=== PATIENT | male | born 1995 | race Caucasian/White ===

== ENCOUNTER 2016-08-09 21:25 | Emergency (ER) | payer BC ==
[~2016-08-09] VITALS: Ht 172.7 cm; Wt 84.5 kg
[~2016-08-09 21:25] MED LIST: ACET325T45 PO; ACET500C5 PO; ALBU8.5H5 IH; AMO500 PO; AZIT250T94 PO; CETI10CA PO; CODE118S PO; ERYTOPOI LEFT EYE; HYDR-3498 PO; IBUP-1542 PO; IBUP200C PO; NAPH15DR22 BOTH EYES; NAPR-260 PO; PRED20TA PO; UDROBDM PO; ZOF8 PO
[2016-08-09 21:27] VITALS: Ht 172.7 cm; Wt 84.5 kg
[2016-08-09] MEDS ORDERED: ONDANSETRON 4 MG INJ IV STA (22:09)
[2016-08-09] MEDS ORDERED: morphine 4 MG/ML VIAL IV STA (22:09)
[2016-08-09] MEDS ORDERED: SOD CHLORIDE 0.9% 1,000 ML IV STA (22:09)
--- NOTE | 2016-08-09 22:20 | ERD ---
ER Documentation Chief Complaint Date/Time DATE: 08/09/16 TIME: 22:15 Chief Complaint left sided abd pain x 2 weeks HPI 21-year-old presents to emergency department for complaint of left low quadrant abdominal pain nausea vomiting diarrhea for 2 weeks. Patient does not have any blood in the stool or black stool. Patient does not have any blood in the vomit. Patient denies hematuria or dysuria. Patient denies any flank pain. Patient did not take medications to help with symptoms. Patient denies any recent travel. ROS All systems reviewed and are negative except as per history of present illness. Medications Home Meds Active Scripts Cetirizine Hcl* (Zyrtec*) 10 Mg Capsule, 10 MG PO DAILY, #30 TAB.CHEW Prov:KAMALJIT BURNETT NP 03/06/16 Ibuprofen* (Motrin*) 600 Mg Tab, 600 MG PO Q6H Y for PAIN AND OR ELEVATED TEMP, #30 TAB Prov:KAMALJIT BURNETT NP 03/06/16 Erythromycin* (Erythromycin* Ophthalmic) 1 Applic Oint, 1 APPLIC LEFT EYE QID for 7 Days, EA Prov:KAMALJIT BURNETT NP 03/06/16 Naphazoline-Pheniramine* (Visine-A*) 15 Ml Drops, 2 DROP BOTH EYES Q4H, #1 BOT Prov:KAMALJIT BURNETT NP 03/06/16 Amoxicillin* (Amoxicillin*) 500 Mg Cap, 500 MG PO TID for 7 Days, CAP Prov:BEE SILVA 02/16/16 Acetaminophen* (Acetaminophen*) 325 Mg Tablet, 650 MG PO Q4H Y for PAIN AND OR ELEVATED TEMP, #20 TAB Prov:MADHU CASTILLO DO 07/24/15 Prednisone* (Prednisone*) 20 Mg Tab, 40 MG PO DAILY, #3 TAB Prov:MADHU CASTILLO 07/24/15 Promethazine w/Codeine (Phenergan w/Codeine Syrup) 5 Ml Syrup, 5 ML PO Q6 Y for COUGH, #120 ML Prov:MADHU CASTILLO 07/24/15 Azithromycin* (Zithromax*) 250 Mg Tablet, 250 MG PO .VIRIDIANA DIRECTED, #6 TAB TAKE 500 MG (2 TABS) THE FIRST DAY THEN 250 MG (1 TAB) DAYS 2-5 Prov:JONATHANMADHU 07/24/15 Guaifenesin-Dextromethorphan* (Robitussin* DM) 100MG/10MG/5ML Syrup, 10 ML PO Q6H Y for COUGH, #240 ML 0 Refills Prov:HAKAN MCMILLAN PA-C 04/18/15 Ibuprofen* (Ibuprofen*) 200 Mg Capsule, 200 MG PO Q6, #30 CAP 0 Refills Prov:HAKAN MCMILLAN PA-C 04/18/15 Acetaminophen* (Tylophen*) 500 Mg Capsule, 500 MG PO Q6H Y for FEVER, #30 TAB 0 Refills Prov:HAKAN MCMILLAN PA-C 04/18/15 Ondansetron Hcl* (Zofran* ODT) 8 mg -ODT Tab.disper, 8 MG PO DAILY for NAUSEA AND/OR VOMITING, #10 TAB 0 Refills Prov:HAKAN MCMILLAN PA-C 04/18/15 Albuterol Sulfate* (Albuterol Sulfate* HFA) 8.5 Gm Hfa.aer.ad, 2 PUFF IH Q6, #1 EA Prov:HAILE ROTH PA-C 03/09/15 Hydrocodone Bit-Acetaminophen* ([place]*) 5-325 Mg Tab, 1 TAB PO Q6 Y for PAIN, # 13 TAB Prov:MADHU CASTILLO 10/19/14 Naproxen* (Naprosyn*) 500 Mg Tablet, 500 MG PO BID Y for PAIN AND/OR INFLAMMATION, #20 TAB Prov:JONATHAN,MADHU 10/19/14 Allergies Allergies: Coded Allergies: No Known Allergy (Unverified , 07/24/15) PMhx/Soc Medical and Surgical Hx: pt denies Medical Hx, pt denies Surgical Hx History of Surgery: No Anesthesia Reaction: No Hx Neurological Disorder: No Hx Respiratory Disorders: No Hx Cardiac Disorders: No Hx Psychiatric Problems: No Hx Miscellaneous Medical Probl: No Hx Alcohol Use: Yes Hx Substance Use: No Hx Tobacco Use: No FmHx Family History: No coronary disease, No diabetes, No other Physical Exam Vitals Vital Signs Date Time Temp Pulse Resp B/P Pulse Ox O2 Delivery O2 Flow Rate FiO2 08/09/16 21:27 97.5 87 20 139/78 100 Physical Exam GENERAL: The patient is well developed and appropriate for usual state of health, in no apparent distress. CHEST: Clear to auscultation bilaterally. There are no rales, wheezes or rhonchi. HEART: Regular rate and rhythm. No murmurs, clicks, rubs or gallops. No S3 or S4. ABDOMEN: Soft, nontender and nondistended. Good bowel sounds. No rebound or guarding. No gross peritonitis. No gross organomegaly or masses. No Freitas sign or McBurney point tenderness. BACK: No midline or flank tenderness. EXTREMITIES: Equal pulses bilaterally. There is no peripheral clubbing, cyanosis or edema. No focal swelling or erythema. Full range of motion. Grossly neurovascularly intact. NEURO: Alert and oriented. Cranial nerves 2-12 intact. Motor strength in all 4 extremities with 5/5 strength. Sensation grossly intact. Normal speech and gait. SKIN: There is no apparent rash or petechia. The skin is warm and dry. HEMATOLOGIC AND LYMPHATIC: There is no evidence of excessive bruising or lymphedema. No gross cervical, axillary, or inguinal lymphadenopathy. Result Diagram: 08/09/16223208/[id number]/162232 Results 24 hrs Laboratory Tests Test 08/09/16 22:33 White Blood Count 6.810^3/ul Red Blood Count 5.2610^6/ul Hemoglobin 15.2g/dl Hematocrit 46.8% Mean Corpuscular Volume 89.0fl Mean Corpuscular Hemoglobin 28.9pg Mean Corpuscular Hemoglobin Concent 32.5g/dl Red Cell Distribution Width 12.3% Platelet Count 69973^3/UL Mean Platelet Volume 9.4fl Neutrophils % 59.3% Lymphocytes % 31.5% Monocytes % 6.1% Eosinophils % 2.1% Basophils % 0.6% Nucleated Red Blood Cells % 0.0/100WBC Neutrophils # 4.010^3/ul Lymphocytes # 2.110^3/ul Monocytes # 0.410^3/ul Eosinophils # 0.110^3/ul Basophils # 0.010^3/ul Nucleated Red Blood Cells # 0.010^3/ul Urine Color LT. YELLOW Urine Clarity CLEAR Urine pH 6.0 Urine Specific [place] >=1.030 Urine Ketones NEGATIVE Urine Nitrite NEGATIVE Urine Bilirubin NEGATIVE Urine Urobilinogen 0.2 E.U./dL Urine Leukocyte Esterase NEGATIVE Urine Hemoglobin NEGATIVE Urine Glucose NEGATIVE% Urine Total Protein NEGATIVE Sodium Level 139mmol/L Potassium Level 3.7mmol/L Chloride Level 103mmol/L Carbon Dioxide Level 27mmol/L Anion Gap 13 Blood Urea Nitrogen 11mg/dl Creatinine 0.91mg/dl Glucose Level 96mg/dl Calcium Level 9.7mg/dl Total Bilirubin 0.1mg/dl Direct Bilirubin 0.00mg/dl Indirect Bilirubin 0.1mg/dl Aspartate Amino Transf (AST/SGOT) 28IU/L Alanine Aminotransferase (ALT/SGPT) 33IU/L Alkaline Phosphatase 97IU/L Total Protein 8.4g/dl Albumin 4.9g/dl Globulin 3.50g/dl Albumin/Globulin Ratio 1.40 Lipase 134U/L Current Medications Medications (Trade) Dose Ordered Sig/Maxine Route PRN Reason Start Time Stop Time Status Last Admin Dose Admin Sodium Chloride (NS) 1,000 ml @ 1,000 mls/hr Q1H STAT IV 08/09/16 22:09 08/09/16 23:08 DC 08/09/16 22:44 Morphine Sulfate (morphine) 4 mg ONCE STAT IV 08/09/16 22:09 08/09/16 22:10 DC 08/09/16 22:44 Ondansetron HCl (Zofran Inj) 4 mg ONCE STAT IV 08/09/16 22:09 08/09/16 22:10 DC 08/09/16 22:44 Patient was given medication for pain here in emergency department, after treatment, patient verbalized feeling much better. Patient's pain is improved.Patient was given Zofran here in the emergency department. After treatment, patient was able to tolerate po fluids here in the emergency department without any vomiting. There is no signs and symptoms of dehydration. Normal saline IV bolus was given here in emergency department for rehydration, patient tolerated IV fluids. PROCEDURE: CT abdomen and pelvis without contrast. CLINICAL INDICATION: Left lower quadrant pain TECHNIQUE: CT scan of the abdomen and pelvis without contrast was performed. Sagittal and coronal reformatted images were obtained from the axial source images. CTDI = 15.57 mGy; DLP = 856.36 mGy-cm COMPARISON: CT abdomen and pelvis 11/29/2012 FINDINGS: Visualized lower thorax: Subtle micro nodules in the anterior basal segment left lower lobe are new possibly the sequela of infection (series 3 image 3). The right lung base is clear. There is no evidence for pleural effusion. Liver, gallbladder, pancreas and spleen: The liver is normal and size, contour and attenuation. There is no evidence for a liver mass or ductal dilatation. The gallbladder is unremarkable. No common bile duct abnormality is demonstrated. The pancreas is unremarkable. The spleen is normal in size. Adrenal glands and genitourinary system: The adrenal glands are normal bilaterally. The kidneys are normal and size, contour and attenuation with no evidence for masses, calculi or hydronephrosis. The ureters are unremarkable. No urinary bladder abnormality is demonstrated. The prostate gland is normal in size. The visualized scrotum shows no abnormality. Gastrointestinal system: The stomach is normal in caliber with no abnormality of significance. The small bowel is normal in caliber with no ileus, obstruction or wall thickening. The appendix and surrounding fat are within the limits of normal. The colon shows no evidence for wall thickening or acute abnormality. There is no evidence for colitis or diverticulitis. Peritoneum, retroperitoneum, lymph nodes and vessels: The abdominal aorta is normal in caliber. No pneumoperitoneum is evident. The inferior vena cava is unremarkable. There is no evidence for adenopathy or mass. There is no ascites. Osseous structures and musculoskeletal findings: There is no fracture, lytic or blastic lesion. No muscular abnormality or soft tissue pathology is present. RPTAT:HJJR IMPRESSION: 1. No evidence of acute intra-abdominal or intrapelvic pathology, there are no findings to help explain the patient's history. 2. Tiny benign appearing likely post inflammatory micro nodules within the anterior basal segment of the left lower lobe are not evident on the prior CT of 11/29/2012 Physician Jamie Date Time Electronically viewed and signed by Physician Jamie on 08/09/2016 23:57 JR/ CC: KAMALJIT BURNETT SENIOR DATA ARCHITECT Procedures/MDM Medical Decision Making: Patient 's abdominal pain and vomiting and diarrhea most likely consistent with acute gastroenteritis, most likely bacterial, will treat with Flagyl and ciprofloxacin. No diverticulitis noted, no abscesses noted. There is low suspicion for abdominal emergencies at this time. Patients abdominal exam is normal at this time. Patients radiology exam does not show any abdominal emergencies at this time. There is low suspicion for appendicitis , cholecystitis, abdominal aortic aneurysms or peritonitis at this time. There is low suspicion for sepsis. Patient appears well and is hemodynamically stable. Disposition: Home. Condition: Stable Prescription Flagyl, ciprofloxacin, Bentyl, Zofran, [place]. Instructions: Patient is advised to take medications as prescribed. Patient is advised to rest, increase fluid intake and do brat diet for next 1-2 days and progress as tolerated. Patient is advised that if symptoms are worse, severe abdominal pain, uncontrolled vomiting, high fever, severe flank pain, worst signs and symptoms, to return to the emergency department immediately. Otherwise, patient can follow up with primary care doctor in 5-7 days. Departure Diagnosis: Primary Impression: Acute gastroenteritis Condition: Stable Patient Instructions: Bacterial Gastroenteritis Additional Instructions: Patient is advised to take medications as prescribed. Patient is advised to rest , increase fluid intake and do brat diet for next 1-2 days and progress as tolerated. Patient is advised that if symptoms are worse, severe abdominal pain , uncontrolled vomiting, high fever, severe flank pain, worst signs and symptoms , to return to the emergency department immediately. Otherwise, patient can follow up with primary care doctor in 5-7 days. KAMALJIT BURNETT NP Aug 09, 2016 22:20
[2016-08-09 23:30] LABS: ADD SCAN DIFF NO
[2016-08-09 23:37] LABS: BASOPHILS % 0.6 % (0.0-2.0); EOSINOPHILS # 0.1 10^3/ul (0.0-0.5); EOSINOPHILS % 2.1 % (0.0-7.0); HEMATOCRIT 46.8 % (42.0-52.0); HEMOGLOBIN 15.2 g/dl (14.0-18.0); LYMPHOCYTES # 2.1 10^3/ul (0.8-2.9); LYMPHOCYTES % 31.5 % (18.0-55.0); MEAN CORPUSCULAR HEMOGLOBIN 28.9 pg (29.0-33.0); MEAN CORPUSCULAR HGB CONC 32.5 g/dl (32.0-37.0); MEAN PLATELET VOLUME 9.4 fl (7.4-10.4); MONOCYTE # 0.4 10^3/ul (0.3-0.9); MONOCYTES % 6.1 % (0.0-13.0); NEUTROPHILS % 59.3 % (30.0-74.0); PLATELET COUNT 371 10^3/UL (140-415); RED BLOOD COUNT 5.26 10^6/ul (4.70-6.10); RED CELL DISTRIBUTION WIDTH 12.3 % (11.5-14.5); WHITE BLOOD COUNT 6.8 10^3/ul (4.8-10.8)
[2016-08-09 23:38] LABS: ADD UMIC NO; URINE BILIRUBIN (Dip) NEGATIVE (NEGATIVE); URINE BLOOD (Dip) NEGATIVE (NEGATIVE); URINE COLOR LT. YELLOW (YELLOW); URINE GLUCOSE (Dip) NEGATIVE (NEGATIVE); URINE KETONES (Dip) NEGATIVE (NEGATIVE); URINE LEUKOCYTE ESTERASE (Dip) NEGATIVE (NEGATIVE); URINE NITRITE (Dip) NEGATIVE (NEGATIVE); URINE TOTAL PROTEIN (Dip) NEGATIVE (NEGATIVE); URINE UROBILINOGEN (Dip) 0.2 E.U./dL (0.1-1.0)
[2016-08-09 23:54] LABS: ALBUMIN 4.9 g/dl (3.3-4.9); ALBUMIN/GLOBULIN RATIO 1.4; BILIRUBIN,INDIRECT 0.1 mg/dl (0-1.1); BILIRUBIN,TOTAL 0.1 mg/dl (0.2-1.3); CALCIUM 9.7 mg/dl (8.4-10.2); CREATININE 0.91 mg/dl (0.61-1.24); POTASSIUM 3.7 mmol/L (3.5-5.1); TOTAL PROTEIN 8.4 g/dl (6.1-8.1)
--- NOTE | 2016-08-09 23:58 | RADRPT ---
PROCEDURE: CT abdomen and pelvis without contrast. CLINICAL INDICATION: Left lower quadrant pain TECHNIQUE: CT scan of the abdomen and pelvis without contrast was performed. Sagittal and coronal reformatted images were obtained from the axial source images. CTDI = 15.57 mGy; DLP = 856.36 mGy-c m COMPARISON: CT abdomen and pelvis 11/29/2012 FINDINGS: Visualized lower thorax: Subtle micro nodules in the anterior basal segment left lower lobe are new possibly the sequela of infection (series 3 image 3). The right lung base is clear. There is no e vidence for pleural effusion. Liver, gallbladder, pancreas and spleen: The liver is normal and size, contour and attenuation. Th ere is no evidence for a liver mass or ductal dilatation. The gallbladder is unremarkable. No comm on bile duct abnormality is demonstrated. The pancreas is unremarkable. The spleen is normal in si ze. Adrenal glands and genitourinary system: The adrenal glands are normal bilaterally. The kidneys are normal and size, contour and attenuation with no evidence for masses, calculi or hydronephrosis. T he ureters are unremarkable. No urinary bladder abnormality is demonstrated. The prostate gland is normal in size. The visualized scrotum shows no abnormality. Gastrointestinal system: The stomach is normal in caliber with no abnormality of significance. The small bowel is normal in caliber with no ileus, obstruction or wall thickening. The appendix and s urrounding fat are within the limits of normal. The colon shows no evidence for wall thickening or acute abnormality. There is no evidence for colitis or diverticulitis. Peritoneum, retroperitoneum, lymph nodes and vessels: The abdominal aorta is normal in caliber. No pneumoperitoneum is evident. The inferior vena cava is unremarkable. There is no evidence for javi opathy or mass. There is no ascites. Osseous structures and musculoskeletal findings: There is no fracture, lytic or blastic lesion. No muscular abnormality or soft tissue pathology is present. RPTAT:HJJR IMPRESSION: 1. No evidence of acute intra-abdominal or intrapelvic pathology, there are no findings to help exp cornelia the patient's history. 2. Tiny benign appearing likely post inflammatory micro nodules within the anterior basal segment o f the left lower lobe are not evident on the prior CT of 11/29/2012 Joselito Graham, Physician Date Time Electronically viewed and signed by Joselito Graham Physician on 08/09/2016 23:57 JR/
[2016-08-10] MEDS ORDERED: CIPR500T4 PO (00:06)
[2016-08-10] MEDS ORDERED: ONDA4TAB14 PO (00:06)
[2016-08-10] MEDS ORDERED: HYDR-906 PO (00:06)
[2016-08-10] MEDS ORDERED: DICY10CA60 PO (00:06)
[2016-08-10] MEDS ORDERED: METR500T PO (00:06)
[2016-08-10 00:31] VITALS: BP 128/80; PULSE 86; RESP 20; TEMP 98
== END 2016-08-10 00:31 | disposition home or self-care (01) ==
LOC: FTE 21:25
DX: K52.9 Noninfective gastroenteritis and colitis, unspecified (principal); R11.2 Nausea with vomiting, unspecified
CPT/HCPCS: 36415; 74176; 80053; 81003; 83690; 85025; 96374; 96375; J2270; J2405; J7030; Z7502

== ENCOUNTER 2016-10-10 10:10 | Emergency (ER) | payer BC ==
[~2016-10-10] VITALS: Wt 87.0 kg
[~2016-10-10 10:10] MED LIST changes: +CIPR500T4 PO; +DICY10CA60 PO; +HYDR-906 PO; +METR500T PO; +ONDA4TAB14 PO
[2016-10-10] MEDS ORDERED: FAMOTIDINE 20 MG TAB PO ONE (10:30)
[2016-10-10] MEDS ORDERED: LIDOCAINE/MYLANTA 40 ML BTL PO ONE (10:30)
[2016-10-10] MEDS ORDERED: ONDANSETRON (ODT) 4 MG TAB ODT STA (10:30)
--- NOTE | 2016-10-10 11:08 | ERD ---
ER Documentation Chief Complaint Date/Time DATE: 10/10/16 TIME: 11:05 Chief Complaint SOB, BACK PAIN, FLANK PAIN, CHEST WALL PAIN, ON AND OFF X2 WEEKS HPI Is a 21-year-old male with no past medical history who presents to the ED with shortness of breath, chest wall pain and epigastric pain on and off 2 weeks. The epigastric pain he has experienced in the past and states that it is similar to what he has experienced in the past. However he states that the shortness of breath and chest wall pain have been going on on and off for the last 2 weeks. He denies syncopal episodes. He denies headache or dizziness or blurry vision. He states that when he palpates on his chest he feels the pain in his chest wall. He denies difficulty breathing. He denies leg pain or leg swelling. He denies recent travel or recent surgeries. Denies history of DVT or PE in the past. ROS All systems reviewed and are negative except as per history of present illness. Medications Home Meds Active Scripts Famotidine* (Pepcid*) 20 Mg Tablet, 20 MG PO BID for 30 Days, TAB Prov:DAMASO SERRANO PA-C 10/10/16 Acetaminophen* (Tylophen*) 500 Mg Capsule, 1 CAP PO Q6H Y for PAIN AND OR ELEVATED TEMP, #20 CAP Prov:DAMASO SERRANO PA-C 10/10/16 Metronidazole* (Flagyl*) 500 Mg Tablet, 500 MG PO TID for 10 Days, TAB Prov:KAMALJIT BURNETT NP 08/10/16 Ciprofloxacin Hcl* (Ciprofloxacin Hcl*) 500 Mg Tablet, 500 MG PO BID for 10 Days , TAB Prov:KAMALJIT BURNETT NP 08/10/16 Dicyclomine Hcl* (Bentyl*) 10 Mg Capsule, 10 MG PO QID, #20 CAP Prov:KAMALJIT BURNETT NP 08/10/16 Ondansetron (Ondansetron Odt) 4 Mg Tab.rapdis, 4 MG PO Q8 Y for NAUSEA AND/OR VOMITING, #30 TAB Prov:KAMALJIT BURNETT NP 08/10/16 Hydrocodone/Acetaminophen ([place] 5-325 Tablet) 1 Each Tablet, 1 TAB PO Q6H Y for SEVERE PAIN LEVEL 7-10, #20 TAB Prov:KAMALJIT BURNETT [employer]IN ROLLING MACHINE OPERATOR 08/10/16 Cetirizine Hcl* (Zyrtec*) 10 Mg Capsule, 10 MG PO DAILY, #30 TAB.CHEW Prov:KAMALJIT BURNETT COIN ROLLING MACHINE OPERATOR 03/06/16 Ibuprofen* (Motrin*) 600 Mg Tab, 600 MG PO Q6H Y for PAIN AND OR ELEVATED TEMP, #30 TAB Prov:KAMALJIT BURNETT COIN ROLLING MACHINE OPERATOR 03/06/16 Erythromycin* (Erythromycin* Ophthalmic) 1 Applic Oint, 1 APPLIC LEFT EYE QID for 7 Days, EA Prov:KAMALJIT BURNETT NP 03/06/16 Naphazoline-Pheniramine* (Visine-A*) 15 Ml Drops, 2 DROP BOTH EYES Q4H, #1 BOT Prov:KAMALJIT BURNETT NP 03/06/16 Amoxicillin* (Amoxicillin*) 500 Mg Cap, 500 MG PO TID for 7 Days, CAP Prov:BEE SILVA DO 02/16/16 Acetaminophen* (Acetaminophen*) 325 Mg Tablet, 650 MG PO Q4H Y for PAIN AND OR ELEVATED TEMP, #20 TAB Prov:MADHU CASTILLO DO 07/24/15 Prednisone* (Prednisone*) 20 Mg Tab, 40 MG PO DAILY, #3 TAB Prov:MADHU CASTILLO DO 07/24/15 Promethazine w/Codeine (Phenergan w/Codeine Syrup) 5 Ml Syrup, 5 ML PO Q6 Y for COUGH, #120 ML Prov:MADHU CASTILLO DO 07/24/15 Azithromycin* (Zithromax*) 250 Mg Tablet, 250 MG PO .ZPACK DIRECTED, #6 TAB TAKE 500 MG (2 TABS) THE FIRST DAY THEN 250 MG (1 TAB) DAYS 2-5 Prov:MADHU CASTILLO DO 07/24/15 Guaifenesin-Dextromethorphan* (Robitussin* DM) 100MG/10MG/5ML Syrup, 10 ML PO Q6H Y for COUGH, #240 ML 0 Refills Prov:HAKAN MCMILLAN PA-C 04/18/15 Ibuprofen* (Ibuprofen*) 200 Mg Capsule, 200 MG PO Q6, #30 CAP 0 Refills Prov:HAKAN MCMILLAN PA-C 04/18/15 Acetaminophen* (Tylophen*) 500 Mg Capsule, 500 MG PO Q6H Y for FEVER, #30 TAB 0 Refills Prov:HAKAN MCMILLAN PA-C 04/18/15 Ondansetron Hcl* (Zofran* ODT) 8 mg -ODT Tab.disper, 8 MG PO DAILY for NAUSEA AND/OR VOMITING, #10 TAB 0 Refills Prov:HAKAN MCMILLAN PA-C 04/18/15 Albuterol Sulfate* (Albuterol Sulfate* HFA) 8.5 Gm Hfa.aer.ad, 2 PUFF IH Q6, #1 EA Prov:HAILE ROTH PA-C 03/09/15 Hydrocodone Bit-Acetaminophen* ([place]*) 5-325 Mg Tab, 1 TAB PO Q6 Y for PAIN, # 13 TAB Prov:JONATHANMADHU AYERS 10/19/14 Naproxen* (Naprosyn*) 500 Mg Tablet, 500 MG PO BID Y for PAIN AND/OR INFLAMMATION, #20 TAB Prov:JONATHANMADHU AYERS 10/19/14 Allergies Allergies: Coded Allergies: No Known Allergy (Unverified , 07/24/15) PMhx/Soc Medical and Surgical Hx: pt denies Medical Hx, pt denies Surgical Hx History of Surgery: No Anesthesia Reaction: No Hx Neurological Disorder: No Hx Respiratory Disorders: No Hx Cardiac Disorders: No Hx Psychiatric Problems: No Hx Miscellaneous Medical Probl: No Hx Alcohol Use: Yes (socially) Hx Substance Use: No Hx Tobacco Use: No Smoking Status: Never smoker FmHx Family History: No coronary disease, No diabetes, No other Physical Exam Vitals Vital Signs Date Time Temp Pulse Resp B/P Pulse Ox O2 Delivery O2 Flow Rate FiO2 10/10/16 10:13 97.2 74 18 129/80 98 Physical Exam GENERAL: Well-developed, well-nourished male. Appears in no acute distress. HEAD: Normocephalic, atraumatic. EYES: Pupils are equally reactive bilaterally. EOMs grossly intact. No conjunctival erythema. ENT: Moist mucous membranes. No uvula deviation. No kissing tonsils. No exudates. NECK: Supple. No lymphadenopathy or thyromegaly. No meningismus. negative kernig. negative brudinski. LUNG: Clear to auscultation bilaterally. No rhonchi, wheezing, rales or coarse breath sounds. Tender to palpation of the sternum HEART: Regular rate and rhythm. No murmurs, rubs or gallops. ABDOMEN: No scars, ecchymosis or rashes noted. Soft, and nondistended. Positive bowel sounds in all four quadrants. No rebound tenderness, no guarding. (-) McBurneys point tenderness. No CVA tenderness. Tenderness in the epigastric region. BACK: No midline tenderness. Extremities: Equal pulses bilaterally. No peripheral clubbing, cyanosis or edema. No unilateral leg swelling. Negative Homans sign. No palpable cord NEUROLOGIC: Alert and oriented. Moving all four extremities. 5/5 strength in all extremities. Normal speech. Steady gait. SKIN: Normal color. Warm and dry. No rashes or lesions. Capillary refill < 2 seconds Results 24 hrs Current Medications Medications (Trade) Dose Ordered Sig/Maxine Route PRN Reason Start Time Stop Time Status Last Admin Dose Admin Miscellaneous Medication (Gi Cocktail (2)) 40 ml ONCE ONCE PO 10/10/16 10:30 10/10/16 10:32 DC 10/10/16 10:40 Famotidine (Pepcid) 20 mg ONCE ONCE PO 10/10/16 10:30 10/10/16 10:32 DC 10/10/16 10:40 Ondansetron HCl (Zofran Odt) 4 mg ONCE STAT ODT 10/10/16 10:30 10/10/16 10:32 DC 10/10/16 10:40 Procedures/MDM ER COURSE: I kept the patient and/or family informed of laboratory and diagnostic imaging results throughout the emergency room course. IMAGING STUDIES [place] [id number] Radiology Main Line: [phone] DIAGNOSTIC IMAGING REPORT Patient: TREVOR LR : 1995 Age: 21 Sex: M MR #: [id number] DOS: 10/10/16 1030 Ordering MD: DAMAOS SERRANO PA-C Location: [facility] Room/Bed: PROCEDURE: Chest Radiograph. CLINICAL INDICATION: Chest pain TECHNIQUE: Single frontal chest radiograph. COMPARISON: None available FINDINGS: The cardiomediastinal silhouette is within normal limits. There is no pneumothorax. No infiltrate or effusion is seen. The bones are intact. IMPRESSION: 1. Unremarkable chest radiograph. RPTAT: KK .Wily Ford MD, MD Date Time Electronically viewed and signed by .Wily Ford MD, MD on 2016 11:15 .B/ CC: DAMASO SERRANO PA-C EKG performed, read by Dr. Sams 64 bpm, normal sinus rhythm, normal axis, no acute ST segment changes, no T wave inversion MEDICAL DECISION MAKING: This is a 21-year-old male who presents with chest wall pain, shortness of breath and epigastric pain 2 weeks. Vital signs were reviewed. Patient is afebrile. Patient is not hypoxic. Patient is not toxic or ill-appearing. Patient's epigastric pain is likely gastritis. Patient has had this pain in the past. Denies fevers or nausea or vomiting I have low suspicion for gallbladder disease. Patient was given a GI cocktail and Pepcid here in the ED tolerated well and seen improvement in symptoms. His EKG was within normal limits and his chest x-ray was within normal limits and did not show signs of fracture or dislocation. Patient likely has chest wall pain. Low suspicion for ACS, AAA, perforated ulcer, bowel obstruction, cholecystitis, choledocholithiasis, cholangitis, pancreatitis, hepatic abscess, appendicitis, diverticulitis, gastroenteritis, hepatitis, peptic ulcer disease, HELLP syndrome. Low suspicion for ACS, PE, AAA, dissection, DVT DISCHARGE: At this time, patient is stable for discharge and outpatient management with no new complaints during the ER course. Patient was sent home with Tylenol and Pepcid and to follow-up with primary care provider a list of clinics was given to patient.. Patient will be discharged home with instructions to recheck for new or worsening symptoms such as fever, nausea, weakness, LOC and to follow up with primary care in the next 1-2 days. Patient was advised to return to the ER for any new or worsening symptoms. Plan was discussed and patient and/or family understands and agrees. Home instructions were given. Departure Diagnosis: Primary Impression: Chest wall pain Additional Impression: Epigastric pain Condition: Stable DAMASO SERRANO PA-C Oct 10, 2016 11:08
--- NOTE | 2016-10-10 11:16 | RADRPT ---
PROCEDURE: Chest Radiograph. CLINICAL INDICATION: Chest pain TECHNIQUE: Single frontal chest radiograph. COMPARISON: None available FINDINGS: The cardiomediastinal silhouette is within normal limits. There is no pneumothorax. No infiltrate o r effusion is seen. The bones are intact. IMPRESSION: 1. Unremarkable chest radiograph. RPTAT: KK .Wily Ford MD, MD Date Time Electronically viewed and signed by .Wily Ford MD, on 10/10/2016 11:15 .B/
[2016-10-10] MEDS ORDERED: ACET500C5 PO (11:34)
[2016-10-10] MEDS ORDERED: FAMO-18 PO (11:35)
== END 2016-10-10 12:46 | disposition home or self-care (01) ==
LOC: FTE 10:10
DX: R07.89 Other chest pain (principal); R10.13 Epigastric pain
CPT/HCPCS: 71010; 93005; Z7610

== ENCOUNTER 2017-09-26 15:27 | Emergency (ER) | END 2017-09-26 19:00 | disposition home or self-care (01) ==

== ENCOUNTER 2017-12-09 05:37 | Emergency (ER) | END 2017-12-09 07:34 | disposition home or self-care (01) ==

== ENCOUNTER 2018-07-12 21:22 | Emergency (ER) | payer BC ==
[~2018-07-12] VITALS: Ht 167.6 cm; Wt 88.6 kg
[~2018-07-12 21:22] MED LIST changes: -AMO500 PO; +AMOX500C2 PO; +AZIT250T PO; -AZIT250T94 PO; +BEN25 PO; +CYCL10TA7 PO; +DICY10CA40 PO; -DICY10CA60 PO; +FAMO-96 PO; +GUAI5SYR2 PO; +HYDR-4011 PO; -HYDR-906 PO; +IBUP-1982 PO; -IBUP200C PO; +IBUP800T48 PO; -NAPH15DR22 BOTH EYES; +NAPH15DR69 BOTH EYES; -NAPR-260 PO; +NAPR-985 PO; +RANI150T35 PO; -UDROBDM PO
[2018-07-12 22:03] VITALS: BP 137/79; PULSE 80; RESP 18; Ht 167.6 cm; Wt 88.6 kg
--- NOTE | 2018-07-13 02:34 | ERD ---
ER Documentation Chief Complaint Chief Complaint L SIDE AP X'S 10 DAYS, VOMITING, DIARRHEA HPI This is a 23-year-old male who presents here in emergency department with complaints of left-sided abdominal pain that is on and off for about 2 weeks and got worse today. Denies headache, head injury, loss of consciousness, dizziness, neck pain, neck stiffness, throat pain, difficulty swallowing, difficulty breathing lying flat, shoulder pain, chest pain, back pain, abdominal pain, nausea, vomiting, constipation, urinary symptoms, loss of bowel and bladder control, trauma, injury, falls, difficulty walking due to pain, numbness or tingling sensation, calf pain, recent travel, recent major surgery in the last 3 weeks, calf pain, recent long travel, recent exposure to any illness, recent antibiotic use in the last 3 months, fever, chills, seizures. Past medical history: Surgical history: Social: Denies smoking, use of alcoholic beverages, use of illegal drugs. ROS All systems reviewed and are negative except as per history of present illness. Medications Home Meds Active Scripts Simethicone (GAS RELIEF) 80 Mg Tab.chew, 80 MG PO QID PRN for DISTE NSION/GAS/BLOATING, #20 TAB.CHEW Prov:ENDER HOGAN 07/13/18 Acetaminophen* (Tylophen*) 500 Mg Capsule, 1 CAP PO Q6H PRN for PAIN AND OR ELEVATED TEMP, #20 CAP Prov:PASENDER SAMSON F 07/13/18 Omeprazole* (Omeprazole*) 40 Mg Capsule.dr, 40 MG PO DAILY, #30 CAP Prov:ENDER HOGAN 07/13/18 Ondansetron Hcl* (Zofran*) 4 Mg Tablet, 4 MG PO Q8H PRN for NAUSEA AND/OR VOMITING, #30 TAB Prov:ENDER HOGAN 07/13/18 Cyclobenzaprine Hcl* (Cyclobenzaprine Hcl*) 10 Mg Tablet, 10 MG PO Q12 PRN for MUSCLE SPASMS, #15 TAB Prov:ENDER HOGAN 12/09/17 Ibuprofen* (Motrin*) 800 Mg Tab, 800 MG PO Q6H PRN for PAIN AND OR ELEVATED TEMP, #30 TAB Prov:ENDER HOGAN 12/09/17 Ranitidine Hcl* (Zantac*) 150 Mg Tablet, 150 MG PO BID PRN for EPIGASTRIC PAIN, #30 TAB Prov:BLANE,DAVIS 09/26/17 Diphenhydramine Hcl* (Benadryl*) 25 Mg Cap, 25 MG PO Q6, #30 CAP Prov:BLANE,DAVIS 09/26/17 Famotidine* (Pepcid*) 20 Mg Tablet, 20 MG PO BID for 30 Days, TAB Prov:DAMASO SERRANO PA-C 10/10/16 Acetaminophen* (Tylophen*) 500 Mg Capsule, 1 CAP PO Q6H PRN for PAIN AND OR ELEVATED TEMP, #20 CAP Prov:DAMASO SERRANO PA-C 10/10/16 Metronidazole* (Flagyl*) 500 Mg Tablet, 500 MG PO TID for 10 Days, TAB Prov:KAMALJIT BURNETT NP 08/10/16 Ciprofloxacin Hcl* (Ciprofloxacin Hcl*) 500 Mg Tablet, 500 MG PO BID for 10 Days, TAB Prov:KAMALJIT BURNETT NP 08/10/16 Dicyclomine HCl (Dicyclomine HCl) 10 Mg Capsule, 10 MG PO QID, #20 CAP Prov:KAMALJIT BURNETT NP 08/10/16 Ondansetron (Ondansetron Odt) 4 Mg Tab.rapdis, 4 MG PO Q8 PRN for NAUSEA AND/OR VOMITING, #30 TAB Prov:KAMALJIT BURNETT NP 08/10/16 Hydrocodone/Acetaminophen (Sedley 5-325 Tablet) 1 Each Tablet, 1 TAB PO Q6H PRN for SEVERE PAIN LEVEL 7-10, #20 TAB Prov:KAMALJIT BURNETT NP 08/10/16 Cetirizine Hcl* (Zyrtec*) 10 Mg Capsule, 10 MG PO DAILY, #30 TAB.CHEW Prov:KAMALJIT BURNETT NP 03/06/16 Ibuprofen* (Motrin*) 600 Mg Tab, 600 MG PO Q6H PRN for PAIN AND OR ELEVATED TEMP, #30 TAB Prov:KAMALJIT BURNETT NP 03/06/16 Erythromycin* (Erythromycin* Ophthalmic) 1 Applic Oint, 1 APPLIC LEFT EYE QID for 7 Days, EA Prov:KAMALJIT BURNETT [employer] 03/06/16 Naphazoline-Pheniramine* (Visine-A*) 15 Ml Drops, 2 DROP BOTH EYES Q4H, #1 BOT Prov:KAMALJIT BURNETT [employer]ENERATOR OPERATOR 03/06/16 Amoxicillin* (Amoxicillin*) 500 Mg Cap, 500 MG PO TID for 7 Days, CAP Prov:BEE SILVA 02/16/16 Acetaminophen* (Acetaminophen*) 325 Mg Tablet, 650 MG PO Q4H PRN for PAIN AND OR ELEVATED TEMP, #20 TAB Prov:MADHU CASTILLO 07/24/15 Prednisone* (Prednisone*) 20 Mg Tab, 40 MG PO DAILY, #3 TAB Prov:JONATHANMADHU 07/24/15 Promethazine w/Codeine (Phenergan w/Codeine Syrup) 5 Ml Syrup, 5 ML PO Q6 PRN for COUGH, #120 ML [facility] 07/[facility]/15 Azithromycin* (Zithromax*) 250 Mg Tablet, 250 MG PO .ZPACK DIRECTED, #6 TAB TAKE 500 MG (2 TABS) THE FIRST DAY THEN 250 MG (1 TAB) DAYS 2-5 Prov:JONATHANMADHU 07/24/15 Guaifenesin-Dextromethorphan* (Robitussin* DM) 100MG/10MG/5ML Syrup, 10 ML PO Q6H PRN for COUGH, #240 ML 0 Refills Prov:HAKAN MCMILLAN PA-C 04/18/15 Ibuprofen* (Ibuprofen*) 200 Mg Capsule, 200 MG PO Q6, #30 CAP 0 Refills Prov:HAKAN MCMILLAN PA-C 04/18/15 Acetaminophen* (Tylophen*) 500 Mg Capsule, 500 MG PO Q6H PRN for FEVER, #30 TAB 0 Refills Prov:HAKAN MCMILLAN PA-C 04/18/15 Ondansetron Hcl* (Zofran* ODT) 8 mg -ODT Tab.disper, 8 MG PO DAILY for NAUSEA AND/OR VOMITING, #10 TAB 0 Refills Prov:HAKAN MCMILLAN PA-C 04/18/15 Albuterol Sulfate* (Albuterol Sulfate* HFA) 8.5 Gm Hfa.aer.ad, 2 PUFF IH Q6, #1 EA Prov:HAILE ROTH PA-C 03/09/15 Hydrocodone Bit-Acetaminophen* (Sedley*) 5-325 Mg Tab, 1 TAB PO Q6 PRN for PAIN, #13 TAB Prov:MADHU CASTILLO DO 10/19/14 Naproxen* (Naprosyn*) 500 Mg Tablet, 500 MG PO BID PRN for PAIN AND/OR INFLAMMATION, #20 TAB Prov:MADHU CASTILLO DO 10/19/14 Allergies Allergies: Coded Allergies: No Known Allergy (Unverified , 12/09/17) PMhx/Soc Medical and Surgical Hx: pt denies Medical Hx, pt denies Surgical Hx History of Surgery: No Anesthesia Reaction: No Hx Neurological Disorder: No Hx Respiratory Disorders: No Hx Cardiac Disorders: No Hx Psychiatric Problems: No Hx Miscellaneous Medical Probl: No Hx Alcohol Use: Yes Hx Substance Use: No Hx Tobacco Use: No Smoking Status: Never smoker Physical Exam Vitals Physical Exam Const: No acute distress Head: Atraumatic Eyes: Normal Conjunctiva. Eyeballs are not sunken. No signs of severe dehydration. ENT: Normal External Ears, Nose and Mouth. Neck: Full range of motion. No meningismus. No nuchal rigidity. No signs of meningeal irritation. Resp: Clear to auscultation bilaterally. No accessory muscle use in breath ing. Cardio: Regular rate and rhythm, no murmurs Abd: Soft, non tender, non distended. Normal bowel sounds. Negative Freitas sign. Negative [place] sign (heel jar test). Negative psoas sign. Negative Rovsing sign. Able to jump 10 times without developing lower abdominal pain. Ambulatory with steady gait and without pain to lower abdomen. Skin: No petechiae or rashes. Color appears normal for ethnicity. No skin tenting. No signs of severe dehydration. Back: No midline or flank tenderness. No CVA tenderness. Ext: No cyanosis, or edema Neur: Awake and alert. No neurological deficits. Psych: Normal Mood and Affect Results 24 hrs Laboratory Tests Test 07/13/18 02:53 White Blood Count 8.5 10^3/ul Red Blood Count 5.16 10^6/ul Hemoglobin 15.2 g/dl Hematocrit 45.3 % Mean Corpuscular Volume 87.8 fl Mean Corpuscular Hemoglobin 29.5 pg Mean Corpuscular Hemoglobin Concent 33.6 g/dl Red Cell Distribution Width 12.4 % Platelet Count 358 10^3/UL Mean Platelet Volume 9.3 fl Immature Granulocytes % 0.500 % Neutrophils % 60.8 % Lymphocytes % 32.8 % Monocytes % 4.7 % Eosinophils % 0.7 % Basophils % 0.5 % Nucleated Red Blood Cells % 0.0 /100WBC Immature Granulocytes # 0.040 10^3/ul Neutrophils # 5.2 10^3/ul Lymphocytes # 2.8 10^3/ul Monocytes # 0.4 10^3/ul Eosinophils # 0.1 10^3/ul Basophils # 0.0 10^3/ul Nucleated Red Blood Cells # 0.0 10^3/ul Urine Color YELLOW Urine Clarity CLEAR Urine pH 6.0 Urine Specific [place] 1.025 Urine Ketones NEGATIVE mg/dL Urine Nitrite NEGATIVE mg/dL Urine Bilirubin NEGATIVE mg/dL Urine Urobilinogen NEGATIVE mg/dL Urine Leukocyte Esterase NEGATIVE [place]/ul Urine Hemoglobin NEGATIVE mg/dL Urine Glucose NEGATIVE mg/dL Urine Total Protein NEGATIVE mg/dl Sodium Level 142 mmol/L Potassium Level 4.6 mmol/L Chloride Level 103 mmol/L Carbon Dioxide Level 28 mmol/L Anion Gap 11 Blood Urea Nitrogen 16 mg/dl Creatinine 0.88 mg/dl Est Glomerular Filtrat Rate mL/min > 60 mL/min Glucose Level 94 mg/dl Calcium Level 10.2 mg/dl Total Bilirubin 0.4 mg/dl Direct Bilirubin 0.00 mg/dl Indirect Bilirubin 0.4 mg/dl Aspartate Amino Transf (AST/SGOT) 44 IU/L Alanine Aminotransferase (ALT/SGPT) 54 IU/L Alkaline Phosphatase 74 IU/L Total Protein 8.6 g/dl Albumin 5.1 g/dl Globulin 3.50 g/dl Albumin/Globulin Ratio 1.45 Amylase Level 118 U/L Lipase 145 U/L Urine Opiates Screen Negative Urine Barbiturates Negative Urine Amphetamines Screen Negative Urine Benzodiazepines Screen Negative Urine Cocaine Screen Negative Urine Cannabinoids Positive Current Medications Medications Dose Sig/Maxine Start Time Status Last (Trade) Ordered Route PRN Stop Time Admin Dose Reason Admin Ondansetron 4 mg ONCE STAT 07/13/18 DC 07/13/18 HCl (Zofran ODT 02:37 02:49 Odt) 07/13/18 02:39 Famotidine 40 mg ONCE ONCE 07/13/18 DC 07/13/18 (Pepcid) PO 03:00 02:49 07/13/18 03:01 40 ml ONCE ONCE 07/13/18 DC 07/13/18 Miscellaneous PO 03:00 02:49 Medication 07/13/18 03:01 (Gi Cocktail (2)) Procedures/MDM Diagnostic tests: Urinalysis: Urine drug screen: Positive for cannabinoids. Blood works: Positive for cannabinoids. Treatment: GI cocktail. Pepcid p.o. Zofran p.o. Re-evaluation: No episode of emesis here in the emergency department. Negative Freitas sign. Negative [place] sign (heel jar test). Negative psoas sign. Negative Rovsing sign. No CVA tenderness. Able to jump 10 times without developing lower abdominal pain. Steady gait. Differential diagnosis I have low suspicion for pancreatitis, cholecystitis, diverticulitis, diverticulitis with abscess, appendicitis, mesenteric ischemia, pyelonephritis, obstructing kidney stone, septic stone, severe dehydration. Final diagnosis: Abdominal pain. Vomiting and diarrhea. Prescription: Omeprazole. Tylenol. Zofran. Simethicone Follow-up with PCP in the next 24-48 hours. Come back here in the emergency department for any new symptoms or any worsening symptoms. All questions and concerns were answered. Patient and family members verbalized understanding and agreed with plan of care. Hemodynamically stable on discharge. Departure Diagnosis: Primary Impression: Abdominal pain Additional Impression: Gastritis Condition: Stable Additional Instructions: Follow-up with PCP in the next 24-48 hours. Come back in 8 hours for recheck of GI symptoms. Come back here in the emergency department for any new symptoms or any worsening symptoms. ENDER HOGAN Jul 13, 2018 02:34
[2018-07-13] MEDS ORDERED: ONDANSETRON (ODT) 4 MG TAB ODT STA (02:37)
[2018-07-13] MEDS ORDERED: LIDOCAINE/MYLANTA 40 ML BTL PO ONE (03:00)
[2018-07-13] MEDS ORDERED: FAMOTIDINE 20 MG TAB PO ONE (03:00)
[2018-07-13] MEDS ORDERED: ONDA4TAB8 PO (04:27)
[2018-07-13] MEDS ORDERED: ACET500C5 PO (04:28)
[2018-07-13] MEDS ORDERED: OMEP40CA6 PO (04:28)
[2018-07-13] MEDS ORDERED: SIME80TA53 PO (04:29)
== END 2018-07-13 04:48 | disposition home or self-care (01) ==
LOC: FTE 21:22
DX: K29.70 Gastritis, unspecified, without bleeding (principal)
CPT/HCPCS: 80053; 80307; 81003; 82150; 83690; 85025; Z7502; Z7610; 99283